=== PATIENT | female | born 1960 | race Hispanic/Latino ===

== ENCOUNTER 2018-03-30 05:33 | Day surgery (SDC) | payer OTHER ==
[2018-03-29 14:50] VITALS: BP 133/69
[2018-03-29 14:54] LABS: BASOPHILS % (AUTO) 0.8 % (0.0-5.0); EOSINOPHILS % (AUTO) 1.1 % (0.0-8.0); HEMATOCRIT 39.4 % (36-48); LYMPHOCYTES % (AUTO) 32.6 % (21.0-51.0); MEAN CORPUSCULAR HEMOGLOBIN 31.3 pg (27.0-33.0); MEAN CORPUSCULAR HGB CONC 34.8 g/dL (32.0-36.0); NEUTROPHILS % (AUTO) 57.5 % (40.0-77.0); NUCLEATED RED BLOOD CELLS 0.1 % (0.0-0.19); PLATELET COUNT (AUTO) 321 K/uL (130-400); RED BLOOD CELL COUNT(AUTO) 4.37 MIL/uL (4.00-5.50); RED CELL DISTRIBUTION WIDTH 12.6 % (11.0-15.5); WHITE BLOOD COUNT (AUTO) 7.8 K/uL (4.8-10.8)
[~2018-03-30] VITALS: Ht 152.4 cm; Wt 71.7 kg
[2018-03-30] VITALS (21 sets, daily range): BP systolic 113–141; BP diastolic 55–79
[~2018-03-30 05:33] MED LIST: LEVO100T12 PO; PRAV20TA4 PO
[2018-03-30] MEDS: CEFAZOLIN SODIUM 1 GM VIAL IVP SCH ×2 (06:00→06:50)
[2018-03-30] MEDS ORDERED: LACTATED RINGERS 1000ML 1,000 ML IV SCH (06:00)
[2018-03-30] MEDS ORDERED: MIDAZOLAM HCL 1 MG/ML 2ML VIAL ONE (06:30)
[2018-03-30] MEDS ORDERED: SUCCINYLCHOLINE CHLORIDE 20 MG/ML 10 ML VIAL ONE (06:30)
[2018-03-30] MEDS ORDERED: ONDANSETRON HCL 4 MG/2 ML VIAL ONE (06:30)
[2018-03-30] MEDS ORDERED: PROPOFOL 10 MG/ML 20ML VIAL IV ONE (06:30)
[2018-03-30] MEDS ORDERED: LIDOCAINE PF 2% 5ML ABBOJECT ONE (06:30)
[2018-03-30] MEDS ORDERED: ROCURONIUM 10MG/1ML SYR 10 MG/ML ML ONE (06:31)
[2018-03-30] MEDS ORDERED: FENTANYL CITRATE PF 50 MCG/1 ML 2ML VIAL ONE (06:31)
[2018-03-30] MEDS ORDERED: KETOROLAC TROMETHAMINE 30MG/ML ONE (06:57)
== END 2018-03-30 09:28 | disposition home or self-care (01) ==
LOC: DAH 05:33
PROVIDERS: ATTEND Obstetrics & Gynecology
DX: C55 Malignant neoplasm of uterus, part unspecified (principal); Z79.899 Other long term (current) drug therapy; K21.9 Gastro-esophageal reflux disease without esophagitis; R00.1 Bradycardia, unspecified
CPT/HCPCS: 36415; 58558; 85025; 86850; 86900; 86901; 88305; 93005; A4218; A4351; A4355; A4600; A4930; J0330; J0690; J1885; J2001; J2250; J2405; J2704; J3010; J7030; J7120

== ENCOUNTER → 2024-12-24 | Outpatient (CLI) | payer OTHER ==
[~2024-12-24] MED LIST changes: -PRAV20TA4 PO; +PRAV20TA59 PO
--- NOTE | 2024-12-24 16:11 | HMCIMG ---
CT HEART SAVER PROMOTIONAL HISTORY: Calcium scoring COMPARISON: None TECHNIQUE: Computed tomography of the heart was performed with ECG gating and suspended respiration. Postprocessing was performed on a computer workstation to obtain diastolic phase images, determine calcium score and provide a quantitative assessment of extent of disease. This CT included only the heart. HeartSaver score is 2.6. Please see cardiac calcium score report. The available CT chest images show no acute finding. CT was performed with one or more following dose reduction techniques: automated exposure control, adjustment of the mA and kv according to patient's size, or use of a iterative reconstruction technique.
== END | disposition home or self-care (01) ==
LOC: RAH 15:01
PROVIDERS: ATTEND Family Medicine
DX: Z13.6 Encounter for screening for cardiovascular disorders (principal)
CPT/HCPCS: 75571